=== PATIENT | male | born 1955 | race Caucasian/White ===

== ENCOUNTER 2021-01-12 14:30 | Observation (INO) ==
[2021-01-12] MEDS ORDERED: Morphine 4 MG/ML VIAL (1 ml) IV ONE (15:50)
[2021-01-12 17:00] LABS: Albumin 3.5 g/dL (3.2-5.2); Calcium 8.5 mg/dL (8.6-10.3); Potassium 4.6 mmol/L (3.5-5.0); Total Bilirubin 0.6 mg/dL (0.2-1.0)
[2021-01-12 17:06] LABS: Albumin/Globulin Ratio 1.1 (1-3); C Reactive Protein 42.81 mg/L (<8.01); EGFR African American 113.4 (>60); EGFR Non-African American 93.7 (>60); Globulin 3.2 g/dL (2-4); Total Protein 6.7 g/dL (6.4-8.9)
[2021-01-12 17:46] LABS: ABS Eosinophils 0.1 10^3/ul (0-0.6); ABS Lymphocytes 1.9 10^3/ul (1.0-4.8); ABS Monocytes 0.5 10^3/ul (0-0.8); ABS Neutrophils 4.9 10^3/ul (1.5-7.7); Eosinophil % 0.9 %; Hematocrit 37 % (42-52); Hemoglobin 12.6 g/dL (14.0-18.0); Lymphocyte % 25.5 %; Mean Corpuscular HGB Conc 34 g/dL (31-36); Mean Corpuscular Hemoglobin 29 pg (27-31); Mean Corpuscular Volume 84 fL (80-94); Mean Platelet Volume 6.8 fL (7.4-10.4); Platelet Count 255 10^3/uL (150-450); Red Blood Count 4.41 10^6 /uL (4.18-5.48); Red Cell Distribution Width 14 % (10-15); White Blood Count 7.4 10^3/uL (3.5-10.8)
[2021-01-13] MEDS ORDERED: Morphine 2 MG/ML SYRINGE IV PRN (03:10)
[2021-01-13] MEDS ORDERED: Lidocaine PATCH 5% PATCH TRANSDERM SCH (09:00)
[2021-01-13 11:22] VITALS: BP 120/72
[2021-01-13] MEDS ORDERED: Lidocaine Patch REMOVE PATCH PATCH OFF SCH (21:00)
== END 2021-01-13 15:50 | disposition home or self-care (01) ==
LOC: ED 14:30 → SSU 14:30
PROVIDERS: ADMIT Internal Medicine; ATTEND Internal Medicine